=== PATIENT | female | born 1980 | race Caucasian/White ===

== ENCOUNTER 2016-11-24 09:13 | Emergency (ER) | payer SELFPAY ==
[~2016-11-24] VITALS: Ht 167.6 cm; Wt 58.0 kg
[2016-11-24 09:22] VITALS: BP 136/96
== END 2016-11-24 10:12 | disposition left against medical advice (07) ==
LOC: ED 09:58
DX: H57.8 Other specified disorders of eye and adnexa (principal); Z53.21 Procedure and treatment not carried out due to patient leaving prior to being seen by health care provider